=== PATIENT | female | born 1990 ===

== ENCOUNTER 2024-03-18 10:18 | Outpatient (REF) | payer OTHER, SELFPAY ==
--- NOTE | ~2024-03-18 | US_ITS ---
EXAMINATION: US PELVIS CLINICAL INFORMATION: Oligomenorrhea. COMPARISON: None available. TECHNIQUE: Ultrasound of the pelvis is performed using both transabdominal and transvaginal transducers along with Doppler. Transvaginal imaging is performed due to inadequate visualization transabdominally. FINDINGS: Uterus: The uterus is anteverted and measures 9.4 x 3.2 x 5.0 cm. Visualization is significantly limited. The endometrial stripe is not well seen and measures between 10 and 15 mm in thickness. No discrete uterine mass is seen. Adnexa: The right ovary is seen transvaginally and measures 3.2 x 1.1 x 3.2 cm, 6 mL. The right ovary appears normal. The left ovary is seen only transabdominally and measures 5.0 x 3.7 x 5.1 cm, volume 50 mL. There is a 3.6 cm simple cyst in left ovary consistent with a physiologic cyst and no imaging follow-up is recommended. No free fluid. US/US pelvic and transvaginal IMPRESSION: Limited visualization of the uterus and endometrium. The endometrial stripe measures between 10 and 15 mm in thickness.
== END 2024-03-18 10:19 | disposition home or self-care (01) ==
LOC: HO.UMASIMG 10:18
PROVIDERS: Visit Provider Family Medicine
DX: R63.5 Abnormal weight gain (principal); N91.5 Oligomenorrhea, unspecified
CPT/HCPCS: 76830; 76856